=== PATIENT | female | born 1960 | race Caucasian/White ===

== ENCOUNTER 2020-03-15 18:48 | Emergency (ER) | payer OTHER ==
[~2020-03-15] VITALS: Ht 160 cm; Wt 64.9 kg
[~2020-03-15 18:48] MED LIST: NO HOME MEDS
[2020-03-15] MEDS ORDERED: NP THYROID15 MG PO (19:02)
[2020-03-15 19:31] LABS: INFLUENZA A ANTIGEN Negative (Negative); INFLUENZA B ANTIGEN Negative (Negative)
[2020-03-15 19:31] LABS: ABSOLUTE LYMPHOCYTES 0.6 thou/uL (0.8-5.3); ABSOLUTE MONOCYTES 0.5 thou/uL (0.0-1.2); ABSOLUTE NEUTROPHILS 4.3 thou/uL (1.6-8.1); BASOPHILS 0.5 %; EOSINOPHILS 0.2 %; HEMATOCRIT 39.2 % (37.0-47.0); LYMPHOCYTES 11.4 %; MCH 29.3 pg (26.0-34.0); MCHC 33.2 g/dL (28.0-37.0); MCV 88.1 fL (80.0-100.0); MONOCYTES 9.9 %; MPV 7.9 fl. (7.2-11.1); NUCLEATED RBCS 0 /100WBC; PLATELET COUNT* 295 thou/uL (150-400); RBC 4.45 mil/uL (4.20-5.00); RDW-CV 13.5 % (10.5-14.5); WBC 5.5 thou/uL (4.0-11.0)
[2020-03-15 19:39] LABS: CALCIUM 8.5 mg/dL (8.5-10.1); CREATININE 1.1 mg/dL (0.6-1.3); POTASSIUM 4.1 mmol/L (3.5-5.1)
[2020-03-15 19:43] LABS: ALBUMIN 3.9 g/dL (3.4-5.0); MAGNESIUM 1.9 mg/dL (1.8-2.4); TOTAL BILIRUBIN 0.3 mg/dL (<0.1-1.0); TOTAL PROTEIN 7.5 g/dL (6.4-8.2)
[2020-03-15] MEDS ORDERED: ZPAK PO (19:57)
[2020-03-15 20:11] VITALS: BP 136/68
== END 2020-03-15 20:12 | disposition home or self-care (01) ==
LOC: M.ERS 18:48
PROVIDERS: Personal Emergency Response Attendant
DX: J18.9 Pneumonia, unspecified organism (principal); B34.9 Viral infection, unspecified; Z20.828 Contact with and (suspected) exposure to other viral communicable diseases; Z88.1 Allergy status to other antibiotic agents; Z88.2 Allergy status to sulfonamides; Z88.8 Allergy status to other drugs, medicaments and biological substances; Z90.710 Acquired absence of both cervix and uterus

== ENCOUNTER 2020-03-25 04:32 | Observation (INO) | payer OTHER ==
[~2020-03-25] VITALS: Ht 167.6 cm; Wt 63.0 kg
[~2020-03-25 04:32] MED LIST changes: +NP THYROID15 MG PO; +ZPAK PO
[2020-03-25 04:56] VITALS: BP 155/62
[2020-03-25 05:44] LABS: URINE BLOOD NEGATIVE (Negative); URINE CLARITY CLEAR; URINE COLOR YELLOW; URINE GLUCOSE-RANDOM NEGATIVE (Negative); URINE KETONES 2+ (Negative); URINE LEUKOCYTES-REFLEX NEGATIVE (Negative); URINE NITRITE-REFLEX NEGATIVE (Negative); URINE PROTEIN TRACE (Negative); URINE SPECIFIC GRAVITY >= 1.030 (1.005-1.030); URINE UROBILINOGEN 0.2 E.U./dl (0.2-1.0)
[2020-03-25 05:45] LABS: ABSOLUTE LYMPHOCYTES 1.2 thou/uL (0.8-5.3); ABSOLUTE MONOCYTES 0.4 thou/uL (0.0-1.2); ABSOLUTE NEUTROPHILS 4.4 thou/uL (1.6-8.1); BASOPHILS 0.2 %; EOSINOPHILS 0.1 %; HEMATOCRIT 44.2 % (37.0-47.0); HEMOGLOBIN 14.9 gm/dL (12.0-15.0); MCH 29.2 pg (26.0-34.0); MCHC 33.8 g/dL (28.0-37.0); MCV 86.3 fL (80.0-100.0); MPV 8.5 fl. (7.2-11.1); NUCLEATED RBCS 0 /100WBC; PLATELET COUNT* 261 thou/uL (150-400); POLYS 73.7 %; RBC 5.12 mil/uL (4.20-5.00); RDW-CV 13.6 % (10.5-14.5)
[2020-03-25 05:48] LABS: URINE BILIRUBIN 1+ (Negative)
[2020-03-25 05:58] LABS: CALCIUM 8.4 mg/dL (8.5-10.1); POTASSIUM 3.8 mmol/L (3.5-5.1)
[2020-03-25 06:10] LABS: ALBUMIN 3.4 g/dL (3.4-5.0); MAGNESIUM 1.9 mg/dL (1.8-2.4); TOTAL BILIRUBIN 0.4 mg/dL (<0.1-1.0); TOTAL PROTEIN 7.4 g/dL (6.4-8.2)
[2020-03-25 07:39] LABS: PROTIME 11.1 Seconds (9.20-11.50)
[2020-03-25 08:56] VITALS: BP 129/85
[2020-03-25 09:56] VITALS: BP 126/90
[2020-03-25 12:02] VITALS: BP 120/74
[2020-03-25] MEDS ORDERED: NP THYROID15 MG PO (15:13)
[2020-03-25 15:35] VITALS: BP 120/74
--- NOTE | 2020-03-26 14:03 | EKG ---
[place] [address] ELECTROCARDIOGRAM REPORT Name: PEPE SANTAMARIA Room: [address]#: [id number] Admission: 03/25/20 Attend Phys: Galileo Torre Discharge: 03/25/20 Date of : 56 Date of Service: 03/25/20 0458 Report #: [id number] THIS REPORT FOR: //name// [facility] ED Test Date: 2020-03-25 Test Time: 04:58:40 Pat Name: PEPE SANTAMARIA Department: Room: [facility] Gender: F Vice President Marketing & Development: GAMALIEL : 1960 Requested By: Isela Littlejohn Order Number: [id number] MD: Iam Villasenor Measurements Intervals [place] Rate: 108 P: NV: QRS: 5 QRSD: 147 T: 64 QT: 322 QTc: 432 Interpretive Statements Atrial fibrillation Nonspecific intraventricular conduction delay No previous ECG available for comparison Electronically Signed On 03-26-2020 14:03:48 DIRECTOR OF ENVIRONMENTAL SERVICES by Iam Villasenor [email or web address] <ELECTRONICALLY SIGNED> By: Iam Villasenor MD, FAC 03/26/20 1403 0458 0458 Iam Villasenor MD, [facility] /EPI
--- NOTE | 2020-03-28 08:51 | CON ---
[address] [address] CONSULTATION Name: PEPE SANTAMARIA Room: [address] [place]#: [id number] Admission: 03/25/20 Attend Phys: Daryl Walker Discharge: 03/25/20 Date of : 56 Report #: [id number] THIS REPORT FOR: //name// cc: Olegario Wells Vincent R. DO ~ DATE OF SERVICE: 03/25/2020 INDICATION: Atrial fibrillation and near syncope. HISTORY OF PRESENT ILLNESS: The patient is a very pleasant 59-year-old white female who was admitted to the hospital after a lengthy viral syndrome at home. She had poor p.o. intake. She had an episode of a fall and weakness, prompting her to come to the hospital. In the hospital, she was given IV fluids for fluid resuscitation. Her symptoms have resolved. She was noted to be in atrial fibrillation with a rapid ventricular response rate on admission. She did spontaneously convert to normal sinus rhythm. In this setting, she had some mild chest pressure, but no pain. Her cardiac enzymes are unremarkable. She is without other cardiac complaint. CARDIAC RISK FACTORS: Include family history. She is not hypertensive. She is not diabetic. She does not have high cholesterol. She is a nonsmoker. PAST MEDICAL HISTORY: 1. Hypothyroidism. 2. Hysterectomy. 3. 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 FAMILY HISTORY: The patient's father of heart attack at 47. The patient has a brother with heart disease. SOCIAL HISTORY: She is a lifelong nonsmoker. She drinks alcohol rarely. REVIEW OF SYSTEMS: She has some weight loss over the past week. She has some mild fevers. She had a nonproductive cough and chills. Otherwise, 14-point review of systems was unremarkable. PHYSICAL EXAMINATION: VITAL SIGNS: Blood pressure 120/74, pulse presently 80 and regular. GENERAL: This is a pleasant lady in no distress. Mood and affect appropriate. HEENT: Head is normocephalic. Extraocular muscles intact. Mucous membranes are moist. NECK: Shows no jugular venous distention. There are no carotid bruits. CHEST: Reveals clear lung corral without wheezes or rales. CARDIOVASCULAR: Reveals a regular rhythm without gallop or murmur. ABDOMEN: Reveals normal bowel sounds. The abdomen is soft, nontender. EXTREMITIES: Shows no edema. Peripheral pulses 2+ [place] [address] CONSULTATION Name: PEPE SANTAMARIA Room: [address] [place]#: [id number] Admission: 03/25/20 Attend Phys: Daryl Walker Discharge: 03/25/20 Date of : 56 Report #: [id number] LABORATORY DATA: A 12-lead EKG shows atrial fibrillation with rapid ventricular response rate. I do not appreciate any acute ST or T-wave abnormalities. IMPRESSION AND RECOMMENDATIONS: 1. Paroxysmal atrial fibrillation. The patient's CHADS score is 0. I would not recommend anticoagulation at this time. She is not interested in medical suppression at this point in time as her episodes are infrequent and short in duration. 2. Chest pressure. The patient does have a family history of coronary artery disease. We will pursue outpatient stress testing. 3. Hypothyroidism. Continue thyroid replacement as outlined above. The patient appears stable for discharge from a cardiac standpoint. <ELECTRONICALLY SIGNED> By: Iam Villasenor MD, FACC 03/28/20 0851 [id number] [id number] Villasenor MD, FACC /nt
== END 2020-03-25 16:00 | disposition home or self-care (01) ==
LOC: M.ERS 04:32 → M.TBA-ER 06:43 → M.2W 09:15
PROVIDERS: Personal Emergency Response Attendant; ADMIT Internal Medicine; ATTEND Internal Medicine
DX: I48.91 Unspecified atrial fibrillation (principal); R55 Syncope and collapse; E03.9 Hypothyroidism, unspecified; E86.0 Dehydration; N17.9 Acute kidney failure, unspecified; J18.9 Pneumonia, unspecified organism; Z79.899 Other long term (current) drug therapy; Z20.828 Contact with and (suspected) exposure to other viral communicable diseases

== ENCOUNTER → 2020-04-17 | Outpatient (CLI) | payer OTHER ==
--- NOTE | 2020-04-18 10:21 | TST ---
[place] [address] TREADMILL STRESS TEST Name: PEPE SANTAMARIA Room: [facility]#: [id number] Admission: 04/17/20 Attend Phys: Nghia Pichardo, Discharge: Date of : 56 Date of Service: 04/17/20 1044 Report #: [id number] THIS REPORT FOR: cc: Olegario Wells Vincent R. DO Blick, David R. MD [facility] ~ CC: Nghia King DO DATE OF SERVICE: 04/17/2020 INDICATIONS: Exercise stress test was requested in this patient with a history of an abnormal ECG. PROCEDURE: The patient was exercised on a Riaz protocol stress test with no imaging. RESULTS: The patient had a pretest heart rate of 60, blood pressure 142/84. The patient was able to exercise for 7 minutes 26 seconds, achieving a peak heart rate of 171, which was greater than 90% of maximum predicted heart rate for the patient's age. Peak blood pressure was 206/77. In recovery, the patient had heart rate 92, blood pressure 152/76. The patient denied chest pains. Exercise was terminated due to achieving target heart rate and elevated blood pressure. The patient's resting ECG showed a normal sinus rhythm with no significant ST or T-wave change at baseline. With exercise, there was a significant amount of artifact noted. There was noted to be J-point depression with exercise, but appeared to be no significant ST-segment depression. During recovery, the patient was noted to have 1.[address] segment depression and a rare PVC. IMPRESSION: 1. Clinical response: Nonischemic. 2. Exercise capacity: Normal for patient's age. 3. ECG response: Nonischemic. This exercise stress test is felt to represent a low risk for predicting future cardiac events. <ELECTRONICALLY SIGNED> By: Jose Ryder MD, FACC 04/18/20 1021 1044 1124 Jose Ryder MD, FACC /nt
== END ==
LOC: M.CRD 07:33
PROVIDERS: ATTEND Orthopaedic Surgery
DX: Z01.810 Encounter for preprocedural cardiovascular examination (principal); R94.31 Abnormal electrocardiogram [ECG] [EKG]; I48.92 Unspecified atrial flutter; I48.91 Unspecified atrial fibrillation

== ENCOUNTER → 2020-04-17 | Outpatient (CLI) | payer OTHER | LOC: M.LAB 07:18 | PROVIDERS: ATTEND Orthopaedic Surgery | DX: Z01.812 Encounter for preprocedural laboratory examination (principal); Z20.828 Contact with and (suspected) exposure to other viral communicable diseases ==

== ENCOUNTER → 2020-04-19 | Outpatient (CLI) | payer OTHER | LOC: M.LAB 06:39 | PROVIDERS: ATTEND Orthopaedic Surgery | DX: Z01.812 Encounter for preprocedural laboratory examination (principal); Z20.828 Contact with and (suspected) exposure to other viral communicable diseases ==

== ENCOUNTER → 2020-11-15 | Outpatient (CLI) | payer OTHER ==
--- NOTE | 2020-11-15 16:01 | 2DMMODE ---
[place] [address] 2 D/M-MODE ECHOCARDIOGRAM Name: PEPE SANTAMARIA Room: [facility]#: [id number] Admission: 11/15/20 Attend Phys: Iam Villasenor, Discharge: Date of : 56 Date of Service: 11/15/20 1600 Report #: [id number] THIS REPORT FOR: cc: Olegario Wells,Olegario Jimenez,Jose Carpio MD [facility] ~ APPROVED REPORT Study performed: 11/15/2020 14:40:50 EXAM: Comprehensive 2D, Doppler, and color-flow Echocardiogram Patient Location: Out-Patient BSA: 1.75 HR: 60 bpm BP: 130/80 mmHg Other Information Study Quality: Good Indications Atrial Fibrillation 2D Dimensions IVSd: 12.02 (7-11mm) LVOT Diam: 19.94 (18-24mm) LVDd: 38.36 mm PWd: 7.28 (7-11mm) Ascending Ao: 30.89 (22-36mm) LVDs: 22.40 (25-40mm) Aortic Root: 29.53 mm Volumes Left Atrial Volume (Systole) LA ESV Index: 15.50 mL/m2 Aortic Valve AoV Peak Saran.: 1.31 m/s AO Peak Gr.: 6.84 mmHg LVOT Max P.91 mmHg AO Mean Gr.: 3.04 mmHg LVOT Mean P.37 mmHg LVOT Max V: 0.85 m/s AO V2 VTI: 24.07 cm LVOT Mean V: 0.53 m/s RAVI (VTI): 2.76 cm2 LVOT V1 VTI: 21.30 cm Mitral Valve E/A Ratio: 1.63 [place] [address] 2 D/M-MODE ECHOCARDIOGRAM Name: PEPE SANTAMARIA Room: [facility]#: [id number] Admission: 11/15/20 Attend Phys: Iam Villasenor, Discharge: Date of : 56 Date of Service: 11/15/20 1600 Report #: [id number] MV Decel. Time: 186.47 ms MV E Max Saran.: 0.75 m/s MV PHT: 54.08 ms MVA (PHT): 4.07 cm2 TDI E/Lateral E': 5.36 E/Medial E': 5.00 Medial E' Saran.: 0.15 m/s Lateral E' Saran.: 0.14 m/s Pulmonary Valve PV Peak Saran.: 0.71 m/s PV Peak Gr.: 2.01 mmHg Tricuspid Valve RAP Estimate: 5.00 mmHg TR Peak Gr.: 16.27 mmHg RVSP: 21.27 mmHg PA Pressure: 21.27 mmHg Left Ventricle The left ventricle is normal size. There is normal LV segmental wall motion. There is normal left ventricular wall thickness. Left ventricular systolic function is normal. The left ventricular ejection fraction is within the normal range. LVEF is 55-60%. The left ventricular diastolic function is normal. Right Ventricle The right ventricle is normal size. The right ventricular systolic function is normal. Atria The left atrium size is normal. The right atrium size is normal. Aortic Valve The aortic valve is normal in structure. No aortic regurgitation is present. There is no aortic valvular stenosis. Mitral Valve The mitral valve is normal in structure. Mild mitral regurgitation. No evidence of mitral valve stenosis. Tricuspid Valve The tricuspid valve is normal in structure. Mild tricuspid regurgitation. estimated pa pressure 25 [place] [address] 2 D/M-MODE ECHOCARDIOGRAM Name: PEPE SANTAMARIA Room: [facility]#: [id number] Admission: 11/15/20 Attend Phys: Iam Villasenor, Discharge: Date of : 56 Date of Service: 11/15/20 1600 Report #: [id number] The pulmonary valve is normal in structure. There is no pulmonic valvular regurgitation. Great Vessels The aortic root is normal in size. IVC is normal in size and collapses >50% with inspiration. Pericardium There is no pericardial effusion. <Conclusion> LVEF is 55-60%. Mild mitral regurgitation. Mild tricuspid regurgitation. estimated pa pressure 25 mm Hg <ELECTRONICALLY SIGNED> By: Jose Ryder MD, FACC 11/15/201599 99 99 Jose Ryder MD, FACC /INF
== END ==
LOC: M.CRD 11-13 11:00
PROVIDERS: ATTEND Internal Medicine Cardiovascular Disease
DX: I08.1 Rheumatic disorders of both mitral and tricuspid valves (principal); I48.0 Paroxysmal atrial fibrillation; R55 Syncope and collapse